=== PATIENT | male | born 1995 | race Caucasian/White ===

== ENCOUNTER → 2018-03-16 | Outpatient (CLI) | payer BC | LOC: M CLY 15:26 | DX: S60.221A Contusion of right hand, initial encounter (principal); W22.09XA Striking against other stationary object, initial encounter; Y92.89 Other specified places as the place of occurrence of the external cause | CPT/HCPCS: 73130 ==

== ENCOUNTER → 2024-07-27 | Outpatient (REF) | payer BC ==
[2024-07-27 18:19] LABS: ALBUMIN 4.6 G/DL (3.2-5.2); ALKALINE PHOSPHATASE 47 U/L (46-116); ALT/SGPT 30 U/L (7.0-40); AST/SGOT 20 U/L (<34); BILIRUBIN,TOTAL 1.4 MG/DL (0.3-1.2); BLOOD UREA NITROGEN 14 MG/DL (9-23); CALCIUM LEVEL 9.8 MG/DL (8.5-10.1); CARBON DIOXIDE LEVEL 28 MMOL/L (20-31); CHLORIDE LEVEL 104 MMOL/L (98-107); CHOLESTEROL LEVEL 184 MG/DL (<200); CHOLESTEROL RISK RATIO 2.43 (<5); CREATININE FOR GFR 0.96 MG/DL (0.70-1.30); GLOMERULAR FILTRATION RATE > 60.0 (>60); GLUCOSE, FASTING 85 MG/DL (60-100); HDL CHOLESTEROL 75.6 MG/DL (>40); NON-HDL-C 108.4 MG/DL; POTASSIUM SERUM 4.4 MMOL/L (3.5-5.1); SODIUM LEVEL 137 MMOL/L (136-145); TESTOSTERONE 730 NG/DL (241-827); TOTAL PROTEIN 7.3 G/DL (5.7-8.2); TRIGLYCERIDES LEVEL 57 MG/DL (<150)
[2024-07-28 09:44] LABS: BILIRUBIN,DIRECT 0.4 MG/DL (<0.4)
== END ==
LOC: M SFHCCLAY 11:52
PROVIDERS: ATTEND Physician Assistant
DX: Z00.00 Encounter for general adult medical examination without abnormal findings (principal)

== ENCOUNTER → 2024-09-23 | Outpatient (REF) | payer BC ==
[2024-09-26 15:37] LABS: F036-IGE COCONUT 0.45 kU/L (<0.10); F345-IGE MACADAMIA NUT 0.67 kU/L (<0.10); F422-IgE Ara h 1 < 0.10 kU/L (<0.10); F422-IgE Ara h 2 0.68 kU/L (<0.10); F422-IgE Ara h 3 < 0.10 kU/L (<0.10); F422-IgE Ara h 6 2.85 kU/L (<0.10); F422-IgE Ara h 9 0.62 kU/L (<0.10)
== END ==
LOC: M LABDRAWC 10:11
PROVIDERS: ATTEND Allergy & Immunology Allergy
DX: T78.06XA Anaphylactic reaction due to food additives, initial encounter (principal)